=== PATIENT | male | born 1955 | race Native Hawaiian/Other Pacific Islander ===

== ENCOUNTER 2016-08-06 12:33 | Inpatient (IN) | payer BC ==
[~2016-08-06] VITALS: Ht 172.7 cm; Wt 82.6 kg
[~2016-08-06 12:33] MED LIST: COUMADIN; DEPAKOTE; PLAVIX75 MG PO; TEGRETOL
[2016-08-06 12:55] VITALS: BP 91/52; TEMP 98.5
[2016-08-06 13:23] LABS: PLATELET COUNT 402 K/uL (142-355)
[2016-08-06 13:39] LABS: POTASSIUM 4.5 mmol/L (3.6-5.2); SODIUM 138 mmol/L (136-145)
[2016-08-06 13:51] VITALS: BP 88/50
[2016-08-06 14:18] VITALS: BP 129/63
[2016-08-06] MEDS ORDERED: BYSTOLIC5 MG PO (15:18)
[2016-08-06] MEDS ORDERED: RANO500T PO (15:18)
[2016-08-06] MEDS ORDERED: VALPROIC ACD250 MG PO (15:20)
[2016-08-06] MEDS ORDERED: CARB200T42 PO ×2 (15:20→15:22)
[2016-08-06] MEDS ORDERED: CLOP75TA2 PO (15:23)
[2016-08-06] MEDS ORDERED: WARF5TAB6 PO (15:29)
--- NOTE | 2016-08-06 15:34 | NUR ---
PT ADMITTED TO ROOM 1109 VIA WC FROM ER. PT ALERT AND ORIENTED. C/O DIZZINESS UPON RISING TO GET IN BED. ORIENTED PT TO ROOM AND CONTROLS. ASSESSMENT COMPLETE. NAD NOTED AT THIS TIME. VITALS STABLE AT THIS TIME. IV INTACT TO R HAND. CALL LIGHT WITHIN REACH AND BED IN LOWEST POSITION. INSTRUCTED PT TO CALL FOR ANY ASSISTANCE.
[2016-08-06 16:00] VITALS: BP 107/60; TEMP 98.1
[2016-08-06 16:03] VITALS: BP 115/58; TEMP 97.7; Ht 172.7 cm; Wt 82.6 kg
--- NOTE | 2016-08-06 17:28 | NUR ---
DR RANDLE NOTIFIED OF CARDIAC LABS RESULTS PER [facility] AT THIS TIME. NO NEW ORDERS GIVEN.
[2016-08-06 17:49] LABS: PARTIAL THROMBOPLASTIN TIME 83.3 SECONDS (24.5-33.6)
[2016-08-06 20:00] VITALS: BP 96/61; TEMP 100.2
[2016-08-07] VITALS: BP 98/50; TEMP 98.1
[2016-08-07 04:00] VITALS: BP 103/55; TEMP 98
[2016-08-07 07:31] LABS: POTASSIUM 4.3 mmol/L (3.6-5.2); SODIUM 138 mmol/L (136-145)
[2016-08-07 07:52] LABS: PLATELET COUNT 371 K/uL (142-355)
[2016-08-07 08:02] VITALS: BP 99/54; TEMP 98.6
[2016-08-07 12:00] VITALS: BP 81/42; TEMP 98.9
[2016-08-07 16:00] VITALS: BP 110/55; TEMP 99.2
[2016-08-07 19:52] VITALS: BP 103/61; TEMP 98.1
[2016-08-08 00:25] VITALS: BP 107/55; TEMP 98.5
[2016-08-08 04:00] VITALS: BP 94/52; TEMP 98.1
[2016-08-08 05:25] LABS: PLATELET COUNT 366 K/uL (142-355)
[2016-08-08 05:38] LABS: POTASSIUM 4.5 mmol/L (3.6-5.2); SODIUM 137 mmol/L (136-145)
[2016-08-08 08:00] VITALS: BP 105/48; TEMP 97.6
[2016-08-08 12:00] VITALS: BP 109/63; TEMP 98
[2016-08-08 16:00] VITALS: BP 106/55; TEMP 98.3
--- NOTE | 2016-08-08 16:19 | NUR ---
YEBOAH INSERTED. NO RESIDUAL NOTED AFTER YEBOAH IN PLACE. YEBOAH REMOVED AND JASON WADSWORTH RN NOTIFIED TO NOTIFY DR. BROWNLEE. PT TOLERATED WELL.
[2016-08-08 20:00] VITALS: BP 118/63; TEMP 98.8
[2016-08-09] VITALS: BP 101/48; TEMP 98.7
[2016-08-09 04:00] VITALS: BP 98/40; TEMP 98.4
[2016-08-09 05:11] LABS: PLATELET COUNT 378 K/uL (142-355)
[2016-08-09 05:38] LABS: POTASSIUM 4.4 mmol/L (3.6-5.2); SODIUM 137 mmol/L (136-145)
[2016-08-09 08:00] VITALS: BP 111/62; TEMP 98.4
[2016-08-09 12:00] VITALS: BP 100/62; TEMP 98.5
[2016-08-09 16:00] VITALS: BP 109/64; TEMP 98.7
[2016-08-09 20:00] VITALS: BP 91/48; TEMP 98.4
[2016-08-10] VITALS: BP 124/55; TEMP 98.1
[2016-08-10 04:00] VITALS: BP 123/63; TEMP 98.6
[2016-08-10 05:31] LABS: PLATELET COUNT 377 K/uL (142-355)
[2016-08-10 05:58] LABS: POTASSIUM 4.3 mmol/L (3.6-5.2); SODIUM 139 mmol/L (136-145)
[2016-08-10 08:27] VITALS: BP 118/46; TEMP 98.3
[2016-08-10 12:00] VITALS: BP 125/65; TEMP 97.7
[2016-08-10 16:00] VITALS: BP 118/80; TEMP 98.1
[2016-08-10 20:00] VITALS: BP 138/80; TEMP 98.3
[2016-08-11] VITALS: BP 138/80; TEMP 98.3
[2016-08-11 04:00] VITALS: BP 123/63; TEMP 98
[2016-08-11 06:16] LABS: PLATELET COUNT 394 K/uL (142-355)
[2016-08-11 06:24] LABS: POTASSIUM 4.5 mmol/L (3.6-5.2); SODIUM 141 mmol/L (136-145)
[2016-08-11 08:24] VITALS: BP 130/92; TEMP 98.3
[2016-08-11 12:00] VITALS: BP 158/72; TEMP 98.1
[2016-08-11 16:00] VITALS: BP 128/86; TEMP 97.9
[2016-08-11 20:00] VITALS: BP 140/72; TEMP 98.7
[2016-08-12] VITALS: BP 118/62; TEMP 98.7
[2016-08-12 04:00] VITALS: BP 122/70; TEMP 98.6
[2016-08-12 04:26] LABS: PLATELET COUNT 404 K/uL (142-355)
[2016-08-12 04:31] LABS: POTASSIUM 4.4 mmol/L (3.6-5.2); SODIUM 141 mmol/L (136-145)
[2016-08-12 04:47] LABS: PARTIAL THROMBOPLASTIN TIME 42.1 SECONDS (24.5-33.6)
[2016-08-12 08:00] VITALS: BP 114/75; TEMP 97.6
[2016-08-12 12:00] VITALS: BP 110/60; TEMP 98
--- NOTE | 2016-08-12 16:29 | NUR ---
IV SITE D/C'D WITH TIP INTACT AND SITE CARE DONE
--- NOTE | 2016-08-12 17:44 | NUR ---
D/C INSTRUCTIONS GIVEN TO PT AND AND BOTH VERBALIZE UNDERSTANDING. PT IS GOING TO EAT SUPPER AND WILL CALL WHEN HE IS READY TO BE TAKEN OUT.
--- NOTE | 2016-08-12 18:00 | NUR ---
PT OUT VIA W/C WITH NICOLE.
== END 2016-08-12 18:00 | disposition home or self-care (01) | DRG 315 ==
LOC: ED 12:33 → MED/SURG 14:00
PROVIDERS: Emergency Medicine
DX: I95.89 Other hypotension (principal); G40.802 Other epilepsy, not intractable, without status epilepticus; A04.8 Other specified bacterial intestinal infections; D64.89 Other specified anemias; R42 Dizziness and giddiness; R39.11 Hesitancy of micturition; K27.9 Peptic ulcer, site unspecified, unspecified as acute or chronic, without hemorrhage or perforation
CPT/HCPCS: 36415; 80048; 80053; 80156; 80164; 81000; 82272; 82550; 82607; 82728; 82747; 83540; 83550; 83735; 84153; 84443; 84466; 84484; 85027; 85044; 85379; 85610; 85730; 86318; 93005; 93306; 94760; 96360; 96365; 96366; 99284; Q9963

== ENCOUNTER 2016-08-14 08:35 | Observation (INO) | payer BC ==
[~2016-08-14] VITALS: Ht 172.7 cm; Wt 81.6 kg
[~2016-08-14 08:35] MED LIST changes: +BYSTOLIC5 MG PO; +CARB200T42 PO; +CLOP75TA2 PO; +RANO500T PO; +VALPROIC ACD250 MG PO; +WARF5TAB6 PO
[2016-08-14 08:38] VITALS: BP 159/84; TEMP 98.5
[2016-08-14] MEDS ORDERED: TAMS0.4C PO (09:03)
[2016-08-14] MEDS ORDERED: AMOXICILLIN250 M2 PO (09:05)
[2016-08-14] MEDS ORDERED: BIAXIN XL PAC500 MG PO (09:06)
[2016-08-14] MEDS ORDERED: PANTPAK PO (09:07)
[2016-08-14 09:36] LABS: PLATELET COUNT 405 K/uL (142-355)
[2016-08-14 09:45] LABS: POTASSIUM 4.1 mmol/L (3.6-5.2); SODIUM 140 mmol/L (136-145)
[2016-08-14 10:30] VITALS: BP 158/83; TEMP 98.1
[2016-08-14 11:10] VITALS: BP 180/92
[2016-08-14 12:47] VITALS: BP 168/90
[2016-08-14 14:57] VITALS: BP 144/69; TEMP 97.7; Ht 172.7 cm; Wt 81.6 kg
[2016-08-14 20:00] VITALS: BP 170/80; TEMP 98.6
[2016-08-15] VITALS: BP 143/76; TEMP 97.8
[2016-08-15 04:00] VITALS: BP 148/86; TEMP 99.1
[2016-08-15 05:09] LABS: PLATELET COUNT 446 K/uL (142-355)
[2016-08-15 05:28] LABS: SODIUM 138 mmol/L (136-145)
[2016-08-15 08:00] VITALS: BP 138/59; TEMP 97.8
[2016-08-15 12:00] VITALS: BP 136/69; TEMP 98
[2016-08-15 16:00] VITALS: BP 139/68; TEMP 97.8
== END 2016-08-15 18:08 | disposition home or self-care (01) ==
LOC: ED 08:35 → MED/SURG 11:30
PROVIDERS: Internal Medicine; ADMIT Specialist
DX: R79.1 Abnormal coagulation profile (principal); R27.0 Ataxia, unspecified; H53.8 Other visual disturbances; I10 Essential (primary) hypertension; G40.802 Other epilepsy, not intractable, without status epilepticus
CPT/HCPCS: 36415; 80053; 80156; 80164; 81000; 82550; 82553; 83605; 83735; 84100; 85027; 85379; 85610; 85651; 93005; 99220; 99283; G0378

== ENCOUNTER 2017-05-06 20:31 | Inpatient (IN) | payer BC ==
[~2017-05-06] VITALS: Ht 172.7 cm; Wt 101.4 kg
[2017-05-06] VITALS (15 sets, daily range): BP systolic 80–110; BP diastolic 42–78; TEMP 97.9–98.3; Ht 172.7 cm; Wt 101.4 kg
[~2017-05-06 20:31] MED LIST changes: +AMOXICILLIN250 M2 PO; +BIAXIN XL PAC500 MG PO; +PANTPAK PO; +TAMS0.4C PO
[2017-05-06 21:08] LABS: PLATELET COUNT 341 K/uL (142-355)
[2017-05-06 21:15] LABS: POTASSIUM 4.3 mmol/L (3.6-5.2)
[2017-05-06] MEDS ORDERED: WARF5TAB6 PO (21:16)
[2017-05-06] MEDS ORDERED: PRAVACHOL20 MG PO (21:17)
[2017-05-06] MEDS ORDERED: CILOSTAZOL PO (21:19)
[2017-05-06 21:22] LABS: PARTIAL THROMBOPLASTIN TIME 34.3 SECONDS (24.5-33.6)
--- NOTE | 2017-05-06 23:00 | NUR ---
PT ARRIVED AT 2240. 62 YR OLD MALE PT ADMITTED FROM ER TO ICU 2 WITH DIAGNOSIS OF TIA, CAROTID ARTERIOSCLEROSIS, OLD CVA, MITRAL VALVE REPLACEMENT, NON THERAPUTIC INR, TROPONIN 0.14([place] [facility]). HISTORY OF CVA WITH L SIDED WEAKNESS OCT 2016, MITRAL VALVE REPLACEMENT IN 1999, HTN, STENT R LEG, SEIZURES, ANEMIA, ARTHRITIS, PAD, CARDIAC STENT(PER ), APPENDECTOMY. PT ALERT AND ORIENTED X4, SKIN WARM AND DRY, NOTE WEAK RADIAL PULSES WITH R RADIAL PULSE FELT STRONGER THAN RADIAL PULSE, WEAK PEDAL PULSES, BILATERAL HAND RECEIVING ASSOCIATE STORE NORMAL AND EQUAL, BILATERAL LEG STRENGTH NORMAL AND EQUAL, PUPILS 3MM AND SLUGGISH, MOVES ALL EXTREMITIES, FACE EQUAL IN APPEARANCE AND WHEN PT SMILES WITH NO DROOPING NOTED, NOTE SPEECH IS SLURRED AT TIMES BUT CAN UNDERSTAND SOME OF WHAT PT IS SAYING, SWALLOWING INTACT WITH NO S/S OF ASPIRATION OR CHOKING NOTED. 20G IV LOCK INTACT TO R AC WITH NO PROBLEMS NOTED TO SITE, ON ROOM AIR WITH SAT OF 100%, RESP RATE NONLABORED, LUNGS CLEAR TO AUSCULTATION. WEARS DENTURES BUT DOES NOT HAVE THEM WITH HIM. PT'S IS AT BEDSIDE. PT AND EDUCATED ABOUT ALL ASPECTS OF PT'S CARE. LABS, DIET, MEDICATIONS, ACTIVITY, BED AND CALL LIGHT CONTROLS, ICU RULES, EQUIPMENT. ACKNOWLEDGE UNDERSTANDING.
[2017-05-07] VITALS (25 sets, daily range): BP systolic 69–166; BP diastolic 50–73; TEMP 97.9–98.8
--- NOTE | 2017-05-07 02:32 | NUR ---
PT AROUSES TO BLOCK PAVER TOUCHING HIM, DENIES ANY PAIN OR PROBLEMS, IS ALERT AND ORIENTED X4. NO S/S OF PAIN OR DISTRESS NOTED, 20G IV INTACT TO R AC WITH NS INFUSING AT 75ML/HR, B/P REMAINS A LITTLE LOW (80/58), PULSE RATE IN LOW 60s TO 55, SKIN WARM AND DRY, RADIAL PULSES INTACT BUT WEAK AND NOTE R RADIAL PULSE IS STRONGER WHEN COMPARED TO L PULSE, PEDAL PULSES INTACT AND WEAK. PUPILS 3MM WITH SLUGGISH REACTION BILATERALLY, RESP RATE 18 EVEN AND NONLABORED, ON ROOM AIR WITH SAT OF 98-100%, HAND ABLE BODIED WATCHMAN NORMAL STRENGTH AND REMAIN EQUAL BILATERALLY, LEG STRENGTH NORMAL AND EQUAL BILATERALLY, NOTE PT'S SPEECH IS IMPROVING AND IS NO LONGER SLURRED. WILL CONTINUE TO MONITOR CLOSELY, RAILS UP X3, BED IN LOW POSITION, URINAL WITHIN REACH, VITALS CONTINUE TO BE MONITORED.
--- NOTE | 2017-05-07 04:20 | NUR ---
PT RESTING IN BED ON R SIDE WITH EYES CLOSED, NO S/S OF PAIN OR DISTRESS NOTED, 20G IV INTACT TO R AC WITH NS INFUSING AT 75ML/HR WITH NO PROBLEMS NOTED TO SITE, RESP RATE NONLABORED, ON ROOM AIR WITH SAT OF 100%, SKIN WARM AND DRY, WILL MONITOR, RAILS UP X 3, CALL LIGHT IN REACH, BED IN LOW POSITION.
--- NOTE | 2017-05-07 04:54 | NUR ---
BLOOD DRAWN AT THIS TIME BY LAB. PT AWAKE WITH NO DISTRESS.
--- NOTE | 2017-05-07 05:10 | NUR ---
0430 B/P IN L ARM ON MACHINE WAS 69/55, B/P TAKEN WITH ANOTHER MACHINE IN L ARM 88/54. PT HAS HX OF CVA AND WEAKNESS ON L SIDE SO B/P CUFF MOVED TO R ARM. 0500 R ARM MANUAL B/P 106/70, AT 0510 B/P ON MACHINE ON R ARM IS 114/64. PT ALERT AND ORIENTED, DENIES ANY PROBLEMS OR PAIN AT THIS TIME, IV INTACT TO R AC WITH FLUID ONGOING, RESP RATE NONLABORED, ON ROOM AIR WITH SAT OF 99%. WILL CONTINUE TO MONITOR CLOSELY, RAILS UP X3, BED IN LOW POSITION, ENCOURAGED TO CALL NEEDED.
--- NOTE | 2017-05-07 05:15 | NUR ---
SPEECH REMAINS CLEAR.
--- NOTE | 2017-05-07 06:12 | NUR ---
RESTING WITH EYES CLOSED IN POSITION OF COMFORT, NO S/S OF PAIN OR DISTRESS NOTED, IV INTACT WITH FLUID ONGOING, RESP RATE NONLABORED, ON ROOM AIR WITH SAT OF 98%, VITALS CONTINUE TO BE MONITORED CLOSELY, RAILS UP X3, BED IN LOW POSITION.
[2017-05-07 09:07] LABS: POTASSIUM 4.1 mmol/L (3.6-5.2)
[2017-05-07 09:18] LABS: PLATELET COUNT 267 K/uL (142-355)
--- NOTE | 2017-05-07 10:26 | NUR ---
RADIOLOGY AT PATIENTS BEDSIDE FOR CORATOID DOPPLER
--- NOTE | 2017-05-07 10:59 | NUR ---
AUTHORIZATION TO DISCLOSE HEALTHCARE INFORMATION FAXED TO [facility] TO DETERMINE TYPE OF MITRAL VALVE REPLACEMENT PATIENT HAD
--- NOTE | 2017-05-07 12:00 | NUR ---
DR REECE AT PATIENTS BEDSIDE
--- NOTE | 2017-05-07 12:33 | NUR ---
DR REECE INFORMED RADIOLOGY PATIENTS MITRAL VALVE WAS MECHANICAL AND OKAY FOR MRI
--- NOTE | 2017-05-07 13:15 | NUR ---
RESPIRATORY THERAPY AT PATIENTS BED SIDE PREFORMING ECHOCARDIOGRAM
--- NOTE | 2017-05-07 16:00 | NUR ---
PT AT MRI
--- NOTE | 2017-05-07 17:21 | NUR ---
PT RESTING WITH EYES CLOSED
[2017-05-08] VITALS (7 sets, daily range): BP systolic 99–130; BP diastolic 50–84; TEMP 97.8–98.4
[2017-05-08 06:13] LABS: PLATELET COUNT 274 K/uL (142-355)
[2017-05-08 06:38] LABS: POTASSIUM 3.8 mmol/L (3.6-5.2)
== END 2017-05-08 10:57 | disposition home or self-care (01) | DRG 69 ==
LOC: ED 20:31 → ICU 22:05
PROVIDERS: Emergency Medicine
DX: G45.8 Other transient cerebral ischemic attacks and related syndromes (principal); G40.802 Other epilepsy, not intractable, without status epilepticus; I49.3 Ventricular premature depolarization; I25.10 Atherosclerotic heart disease of native coronary artery without angina pectoris; Z86.73 Personal history of transient ischemic attack (TIA), and cerebral infarction without residual deficits; K21.9 Gastro-esophageal reflux disease without esophagitis; E78.4 Other hyperlipidemia
CPT/HCPCS: 36415; 80053; 80164; 82550; 83735; 84484; 85027; 85610; 85730; 93005; 93306; 96360; 96372; 99285; J1650; J2060; J3490

== ENCOUNTER 2018-06-12 08:18 | Outpatient (CLI) | payer BC ==
[~2018-06-12 08:18] MED LIST changes: +CILOSTAZOL PO; +PRAVACHOL20 MG PO
== END 2018-06-12 19:30 | disposition home or self-care (01) ==
LOC: LABW 08:18
DX: T45.511A Poisoning by anticoagulants, accidental (unintentional), initial encounter (principal); R79.1 Abnormal coagulation profile; Z51.81 Encounter for therapeutic drug level monitoring
CPT/HCPCS: 36415; 85610

== ENCOUNTER 2018-10-15 10:21 | Outpatient (CLI) | payer BC ==
[2018-10-15 10:51] LABS: PLATELET COUNT 335 K/uL (142-355)
== END 2018-10-15 20:31 | disposition home or self-care (01) ==
LOC: LAB 10:21
PROVIDERS: Nurse Practitioner Family
DX: I25.10 Atherosclerotic heart disease of native coronary artery without angina pectoris (principal); I73.9 Peripheral vascular disease, unspecified; I77.6 Arteritis, unspecified; D72.829 Elevated white blood cell count, unspecified
CPT/HCPCS: 85027; 85651; 86140

== ENCOUNTER 2019-02-03 11:14 | Outpatient (CLI) | payer BC | END 2019-02-03 21:53 | disposition home or self-care (01) | LOC: LAB 11:14 | DX: R79.1 Abnormal coagulation profile (principal) | CPT/HCPCS: 85610 ==

== ENCOUNTER 2019-02-04 11:26 | Outpatient (CLI) | payer BC | END 2019-02-04 20:18 | disposition home or self-care (01) | LOC: LAB 11:26 | DX: Z51.81 Encounter for therapeutic drug level monitoring (principal); R79.1 Abnormal coagulation profile | CPT/HCPCS: 36415; 85610 ==

== ENCOUNTER 2019-03-10 10:57 | Outpatient (CLI) | payer BC | END 2019-03-10 20:49 | disposition home or self-care (01) | LOC: LAB 10:57 | DX: Z79.899 Other long term (current) drug therapy (principal) | CPT/HCPCS: 80156; 80164 ==

== ENCOUNTER 2019-05-05 11:32 | Outpatient (CLI) | payer OTHER, BC ==
[2019-05-05 11:52] LABS: PLATELET COUNT 325 K/uL (142-355)
[2019-05-05 12:04] LABS: POTASSIUM 3.7 mmol/L (3.6-5.2)
== END 2019-05-05 22:31 | disposition home or self-care (01) ==
LOC: LAB 11:32
PROVIDERS: Internal Medicine Rheumatology
DX: Z79.899 Other long term (current) drug therapy (principal); I79.1 Aortitis in diseases classified elsewhere
CPT/HCPCS: 80053; 85027

== ENCOUNTER 2019-05-12 11:39 | Outpatient (CLI) | payer OTHER, BC ==
[2019-05-12 14:09] LABS: PLATELET COUNT 283 K/uL (142-355)
[2019-05-12 14:42] LABS: POTASSIUM 4.8 mmol/L (3.6-5.2)
== END 2019-05-12 19:22 | disposition home or self-care (01) ==
LOC: LAB 11:39
PROVIDERS: Internal Medicine Rheumatology
DX: D51.8 Other vitamin B12 deficiency anemias (principal); D64.89 Other specified anemias; R63.4 Abnormal weight loss; R76.0 Raised antibody titer
CPT/HCPCS: 80053; 82607; 82728; 82746; 83540; 83550; 83918; 85027; 85044

== ENCOUNTER 2019-06-15 11:51 | Outpatient (CLI) | payer OTHER, BC ==
[2019-06-15 12:29] LABS: PLATELET COUNT 236 K/uL (142-355)
== END 2019-06-15 22:34 | disposition home or self-care (01) ==
LOC: LAB 11:51
PROVIDERS: Internal Medicine Rheumatology
DX: I79.1 Aortitis in diseases classified elsewhere (principal); M05.20 Rheumatoid vasculitis with rheumatoid arthritis of unspecified site; R63.4 Abnormal weight loss; R70.0 Elevated erythrocyte sedimentation rate; R76.0 Raised antibody titer
CPT/HCPCS: 80053; 82784; 85027; 85651; 86140

== ENCOUNTER 2019-09-03 12:53 | Outpatient (CLI) | payer OTHER ==
[2019-09-03 13:22] LABS: PLATELET COUNT 233 K/uL (142-355)
[2019-09-03 13:32] LABS: POTASSIUM 3.6 mmol/L (3.6-5.2)
== END 2019-09-03 19:01 | disposition home or self-care (01) ==
LOC: LAB 12:53
PROVIDERS: Internal Medicine
DX: N18.3 Chronic kidney disease, stage 3 (moderate) (principal); D63.8 Anemia in other chronic diseases classified elsewhere
CPT/HCPCS: 80053; 81000; 85027

== ENCOUNTER 2019-10-14 13:32 | Outpatient (CLI) | payer OTHER ==
[2019-10-14 13:59] LABS: PLATELET COUNT 212 K/uL (142-355)
== END 2019-10-14 21:12 | disposition home or self-care (01) ==
LOC: LAB 13:32
PROVIDERS: Internal Medicine
DX: R79.1 Abnormal coagulation profile (principal)
CPT/HCPCS: 85027

== ENCOUNTER 2019-12-07 10:17 | Outpatient (CLI) | payer OTHER ==
[2019-12-07 14:46] LABS: POTASSIUM 4.5 mmol/L (3.6-5.2)
[2019-12-07 14:51] LABS: PLATELET COUNT 208 K/uL (142-355)
== END 2019-12-07 19:09 | disposition home or self-care (01) ==
LOC: LAB 10:17
PROVIDERS: Internal Medicine
DX: I77.6 Arteritis, unspecified (principal); I73.89 Other specified peripheral vascular diseases; E78.2 Mixed hyperlipidemia; D72.828 Other elevated white blood cell count
CPT/HCPCS: 80053; 80061; 81000; 82306; 84443; 85027

== ENCOUNTER 2020-02-16 12:26 | Emergency (ER) | payer OTHER ==
[~2020-02-16] VITALS: Ht 172.7 cm; Wt 63.5 kg
[2020-02-16] MEDS ORDERED: CRESTOR20 MG PO (13:23)
[2020-02-16] MEDS ORDERED: VITAMIN D350000 UNI1 PO (13:28)
[2020-02-16] MEDS ORDERED: WARF2TAB7 PO (13:30)
[2020-02-16] MEDS ORDERED: CARBAMAZEPIN200 M1 PO (13:33)
[2020-02-16] MEDS ORDERED: FE TABS325 MG PO (13:36)
[2020-02-16] MEDS ORDERED: CILOSTAZOL PO (13:43)
[2020-02-16] MEDS ORDERED: EZET10TA13 PO (13:44)
[2020-02-16 13:45] LABS: POTASSIUM 4.4 mmol/L (3.6-5.2)
[2020-02-16] MEDS ORDERED: METO-837 PO (13:45)
[2020-02-16 14:20] LABS: PLATELET COUNT 386 K/uL (142-355)
[2020-02-16 17:20] VITALS: BP 98/59; TEMP 94.9
== END 2020-02-16 17:20 | disposition short-term general hospital (02) ==
LOC: ED 12:26
PROVIDERS: Emergency Medicine Emergency Medical Services
PROC: 30233N1 Transfusion of Nonautologous Red Blood Cells into Peripheral Vein, Percutaneous Approach (ICD-10-PCS; principal; 2020-02-16)
DX: I21.4 Non-ST elevation (NSTEMI) myocardial infarction (principal); I63.89 Other cerebral infarction; D64.89 Other specified anemias; Z86.73 Personal history of transient ischemic attack (TIA), and cerebral infarction without residual deficits; Z03.818 Encounter for observation for suspected exposure to other biological agents ruled out; F17.210 Nicotine dependence, cigarettes, uncomplicated
CPT/HCPCS: 36430; 80053; 80156; 80164; 82272; 82550; 82553; 83735; 84484; 85007; 85027; 85610; 86850; 86900; 86901; 86922; 87040; 87502; 87635; 93005; 96360; 96361; 96365; 99285; J2543; J3430; P9016; U0003

== ENCOUNTER 2020-07-20 11:15 | Outpatient (CLI) | payer OTHER ==
[~2020-07-20 11:15] MED LIST changes: +CARBAMAZEPIN200 M1 PO; +CRESTOR20 MG PO; +EZET10TA13 PO; +FE TABS325 MG PO; +METO-837 PO; +VITAMIN D350000 UNI1 PO; +WARF2TAB7 PO
[2020-07-20 11:37] LABS: PLATELET COUNT 185 K/uL (142-355)
[2020-07-20 11:52] LABS: POTASSIUM 4.4 mmol/L (3.6-5.2)
== END 2020-07-20 22:00 | disposition home or self-care (01) ==
LOC: LAB 11:15
PROVIDERS: ATTEND Psychiatry & Neurology Neurology
DX: Z79.899 Other long term (current) drug therapy (principal)
CPT/HCPCS: 80053; 80164; 85027

== ENCOUNTER 2020-07-26 11:34 | Outpatient (CLI) | payer OTHER | END 2020-07-26 21:00 | disposition home or self-care (01) | LOC: LAB 11:34 | PROVIDERS: ATTEND Psychiatry & Neurology Neurology | DX: D64.89 Other specified anemias (principal); I21.4 Non-ST elevation (NSTEMI) myocardial infarction | CPT/HCPCS: 82607; 82746 ==

== ENCOUNTER 2020-10-19 09:35 | Outpatient (CLI) | payer OTHER ==
[2020-10-19 09:56] LABS: PLATELET COUNT 286 K/uL (142-355)
[2020-10-19 10:03] LABS: POTASSIUM 3.8 mmol/L (3.6-5.2)
== END 2020-10-19 20:10 | disposition home or self-care (01) ==
LOC: LABW 09:35
PROVIDERS: ATTEND Internal Medicine
DX: N18.30 Chronic kidney disease, stage 3 unspecified (principal); D63.8 Anemia in other chronic diseases classified elsewhere
CPT/HCPCS: 36415; 80048; 85027

== ENCOUNTER 2020-12-14 07:53 | Outpatient (CLI) | payer OTHER ==
[2020-12-14 09:22] LABS: PLATELET COUNT 203 K/uL (142-355)
[2020-12-14 09:42] LABS: POTASSIUM 4.2 mmol/L (3.6-5.2)
== END 2020-12-14 18:51 | disposition home or self-care (01) ==
LOC: LABW 07:53
PROVIDERS: ATTEND Internal Medicine
DX: Z71.3 Dietary counseling and surveillance (principal); Z68.22 Body mass index [BMI] 22.0-22.9, adult; I25.10 Atherosclerotic heart disease of native coronary artery without angina pectoris; E78.2 Mixed hyperlipidemia; N18.32 Chronic kidney disease, stage 3b; E53.8 Deficiency of other specified B group vitamins; J44.9 Chronic obstructive pulmonary disease, unspecified; D53.9 Nutritional anemia, unspecified; F17.210 Nicotine dependence, cigarettes, uncomplicated; F01.50 Vascular dementia, unspecified severity, without behavioral disturbance, psychotic disturbance, mood disturbance, and anxiety; G40.909 Epilepsy, unspecified, not intractable, without status epilepticus; Z95.2 Presence of prosthetic heart valve
CPT/HCPCS: 36415; 80053; 80061; 82306; 82607; 82746; 84443; 84550; 85027